=== PATIENT | male | born 1965 | race Caucasian/White ===

== ENCOUNTER 2022-03-30 08:36 | Outpatient (CLI) | payer SELFPAY ==
[2022-03-30 12:40] LABS: Albumin* 4.7 g/dL (3.3-5.0); Chloride* 105 mmol/L (96-114)
[2022-03-30 12:41] LABS: Potassium* 4.8 mmol/L (3.6-5.1); Sodium* 138 mmol/L (135-149)
[2022-03-30 12:43] LABS: Alkaline Phosphatase* 76 U/L (40-150); Aspartate Amino Transferase* 27 U/L (12-35); Bilirubin Total* 0.8 mg/dL (0.1-1.5); Blood Urea Nitrogen* 18 mg/dL (7-30); Carbon Dioxide* 24 mmol/L (20-32); Cholesterol* 169 mg/dL (90-199); Creatinine* 0.9 mg/dL (0.5-1.5); Estimated Glomerular Filt Rate 101 ml/min; Total Protein* 7.4 g/dL (6.0-8.3)
[2022-03-30 12:44] LABS: Alanine Aminotransferase* 31 U/L (4-50); Calcium* 9.2 mg/dL (8.4-10.6); Glucose* 162 mg/dL (60-115); HDL Cholesterol* 64 mg/dL (>=40); LDL Cholesterol Calculated 58 mg/dL (<100); Triglycerides* 234 mg/dL (40-149)
[2022-03-31 21:08] LABS: Prolactin 4.3 ng/mL (2.1-17.7)
== END 2022-03-30 08:37 | disposition home or self-care (01) ==
PROVIDERS: PCP Family Medicine; Visit Provider Family Medicine
DX: Z00.00 Encounter for general adult medical examination without abnormal findings (principal); E78.00 Pure hypercholesterolemia, unspecified; I10 Essential (primary) hypertension; N63.0 Unspecified lump in unspecified breast; F41.9 Anxiety disorder, unspecified
CPT/HCPCS: 80053; 80061; 84146; 84153

== ENCOUNTER 2022-04-06 08:47 | Outpatient (CLI) | payer SELFPAY ==
--- NOTE | 2022-04-06 08:45 | CRLHL7_ITS ---
For Patients: As a result of the Century Cures Act, medical imaging exams and procedure reports are released immediately into your electronic medical record. You may view this report before your referring provider. If you have questions, please contact your health care provider. DIGITAL DIAGNOSTIC BILATERAL MAMMOGRAM USING TOMOSYNTHESIS AND COMPUTER-AIDED DETECTION CLINICAL HISTORY: BILATERAL breast lumps. COMPARISON: 04/10/2019. TECHNIQUE: Digital BILATERAL mammogram in four projections. Tomosynthesis and CAD utilized. BREAST COMPOSITION: There are areas of scattered fibroglandular density. FINDINGS: Mild BILATERAL subareolar gynecomastia is present. No suspicious masses or architectural distortion. No suspicious calcifications or adenopathy. IMPRESSION: Mild subareolar gynecomastia bilaterally. No suspicious findings. RECOMMENDATIONS: Clinical follow-up. Results and recommendations discussed with the patient. BI-RADS Category 2: Benign A lay language report of this examination will be provided to the patient. Dictated by Cody Mckeon MD @ 04/06/2022 9:48:53 AM jj/Dictated by: Cody Mckeon MD @ 04/06/2022 9:49:00 AM (Electronically Signed)
== END 2022-04-06 08:48 | disposition home or self-care (01) ==
PROVIDERS: PCP Family Medicine; Visit Provider Family Medicine
DX: N63.10 Unspecified lump in the right breast, unspecified quadrant (principal); N63.20 Unspecified lump in the left breast, unspecified quadrant
CPT/HCPCS: 77066; G0279

== ENCOUNTER 2023-10-11 15:49 | Outpatient (CLI) | payer OTHER, SELFPAY | END 2023-10-11 15:50 | disposition home or self-care (01) | LOC: LKVREF 15:52 | PROVIDERS: PCP Family Medicine; Visit Provider Family Medicine | DX: E11.9 Type 2 diabetes mellitus without complications (principal); I10 Essential (primary) hypertension; E78.00 Pure hypercholesterolemia, unspecified; R73.9 Hyperglycemia, unspecified; Z79.899 Other long term (current) drug therapy | CPT/HCPCS: 80053 ==

== ENCOUNTER 2024-06-12 07:59 | Outpatient (CLI) | payer BC, SELFPAY | END 2024-06-12 08:00 | disposition home or self-care (01) | PROVIDERS: PCP Family Medicine; Visit Provider Family Medicine | DX: E78.00 Pure hypercholesterolemia, unspecified (principal); I10 Essential (primary) hypertension; E11.9 Type 2 diabetes mellitus without complications; R73.9 Hyperglycemia, unspecified; Z12.5 Encounter for screening for malignant neoplasm of prostate | CPT/HCPCS: 80061; 80076; 82043; 82570; G0103 ==

== ENCOUNTER 2024-08-21 08:05 | Outpatient (CLI) | payer BC, SELFPAY | END 2024-08-21 08:06 | disposition home or self-care (01) | LOC: NFLDREF 08-25 16:45 | PROVIDERS: PCP Family Medicine; Referring Provider Family Medicine; Visit Provider Family Medicine | DX: E11.65 Type 2 diabetes mellitus with hyperglycemia (principal); I10 Essential (primary) hypertension; Z79.84 Long term (current) use of oral hypoglycemic drugs | CPT/HCPCS: 80048 ==